=== PATIENT | male | born 1960 | race Two or more races ===

== ENCOUNTER 2023-06-23 05:39 | Day surgery (SDC) | payer OTHER | END 2023-06-23 11:00 | disposition home or self-care (01) | LOC: AMB-ENDOS 05:39 | PROVIDERS: ATTEND Surgery | DX: D12.2 Benign neoplasm of ascending colon (principal); K57.30 Diverticulosis of large intestine without perforation or abscess without bleeding; Z20.822 Contact with and (suspected) exposure to COVID-19 ==